=== PATIENT | male | born 1960 | race Hispanic/Latino ===

== ENCOUNTER 2020-10-10 12:02 | Emergency (ER) | payer OTHER ==
[2020-10-10] MEDS ORDERED: Lidocaine 1% (PF) 30 ML VIAL ONE (12:12)
[2020-10-10] MEDS ORDERED: Boostrix 0.5 ML (Tdap) VIAL ONE (12:12)
[2020-10-10] MEDS ORDERED: Bacitracin 1 PK ONE (12:34)
== END 2020-10-10 12:45 | disposition home or self-care (01) ==
LOC: NAV ERS 12:02
DX: S61.012A Laceration without foreign body of left thumb without damage to nail, initial encounter (principal); E11.9 Type 2 diabetes mellitus without complications; Z79.84 Long term (current) use of oral hypoglycemic drugs; W26.0XXA Contact with knife, initial encounter
CPT/HCPCS: 12002; 90471; 90715; J2001